=== PATIENT | male | born 1980 | race Caucasian/White ===

== ENCOUNTER 2018-08-18 01:29 | Emergency (ER) | payer SELFPAY ==
[2018-08-18 02:52] VITALS: BP 127/92; PULSE 72; TEMP 98.2; BMI 30.7
--- NOTE | 2018-08-18 03:26 | PDOC ---
Attending Attestation - Resident Resident Name: Duke Weiner - ED Attending Attestation I have performed the following: I have examined & evaluated the patient, The case was reviewed & discussed with the resident, I agree w/resident's findings & plan
[2018-08-18] MEDS ORDERED: OFLOXACIN 0.3% OTIC SOLUTION 5 ML BOTTLE AU ONE (03:42)
[2018-08-18] MEDS ORDERED: IBUPROFEN 400 MG TABLET (FP) PO ONE ×2 (03:45→03:53)
--- NOTE | 2018-08-18 03:54 | PDOC ---
History of Present Illness - General Chief Complaint: Ear Problem Stated Complaint: R EAR PAIN Time Seen by Provider: 08/18/18 03:02 History Source: Patient - History of Present Illness Initial Comments: 08/18/18 03:49 38 year old male with right ear pain x 3 days seen in clinic 1 day ago started on augmentin. patient reports persistent ear pain, took tylenol with no improvement in pain. 08/18/18 03:52 Past History - Past Medical History Allergies/Adverse Reactions: Allergies Allergy/AdvReac Type Severity Reaction Status Date / Time No Known Allergies Allergy Verified 08/18/18 02:52 Home Medications: Ambulatory Orders Ciprofloxacin HCl/Dexameth [Ciprodex Otic Suspension] 4 drop AU BID #1 bottle - Suicide/Smoking/Psychosocial Hx Smoking History: Never smoked Have you smoked in the past 12 months: No Information on smoking cessation initiated: No Hx Alcohol Use: Yes Drug/Substance Use Hx: No *Physical Exam - Vital Signs Last Vital Signs Temp Pulse Resp BP Pulse Ox 98.2 F 72 19 127/92 97 08/18/18 01:29 08/18/18 01:29 08/18/18 01:29 08/18/18 01:29 08/18/18 01:29 - Physical Exam General Appearance: Yes: Appropriately Dressed HEENT: positive: Other (otitis externa erythematous. pain to ear when tragus is pulled/ ) Neck: negative: Lymphadenopathy (R), Lymphadenopathy (L) Moderate Sedation - Procedure Monitoring Vital Signs: Procedure Monitoring Vital Signs Temperature 98.2 F 08/18/18 01:29 Pulse Rate 72 08/18/18 01:29 Respiratory Rate 19 08/18/18 01:29 Blood Pressure 127/92 08/18/18 01:29 O2 Sat by Pulse Oximetry (%) 97 08/18/18 01:29 *DC/Admit/Observation/Transfer Diagnosis at time of Disposition: Otitis externa Qualifiers: Otitis externa type: unspecified type Chronicity: acute Laterality: right Qualified Code(s): H60.501 - Unspecified acute noninfective otitis externa, right ear - Discharge Dispostion Disposition: HOME Condition at time of disposition: Fair - Prescriptions Prescriptions: Ciprofloxacin HCl/Dexameth [Ciprodex Otic Suspension] 4 drop AU BID #1 bottle - Referrals - Patient Instructions Printed Discharge Instructions: DI for Otitis Externa Additional Instructions: instill ear drops as perscribed. take augmentin as prescribed follow up with a ENT doctor in 1-2 days. Additional Instructions: * Please call your personal physician to report your Emergency Department visit and to report your progress, if any. * If there is no improvement in symptoms in 2 days call your physician. * Return to the Emergency Department for any worsening symptoms. - Post Discharge Activity Forms/Work/School Notes: Back to Work
--- NOTE | 2018-08-18 04:11 | PDOC ---
*Physical Exam - Vital Signs Last Vital Signs Temp Pulse Resp BP Pulse Ox 98.2 F 72 19 127/92 97 08/18/18 01:29 08/18/18 01:29 08/18/18 01:29 08/18/18 01:29 08/18/18 01:29 ED Treatment Course - Medications Given in the ED: ED Medications Discontinued Medications Generic Name Dose Route Start Last Admin Trade Name Josy PRN Reason Stop Dose Admin Ibuprofen 800 mg 08/18/18 03:45 08/18/18 03:55 Motrin - PO 08/18/18 03:46 800 mg ONCE ONE Administration Ofloxacin 10 drop 08/18/18 03:42 08/18/18 03:55 Floxin Otic (Ear) Solution - AU 08/18/18 03:43 Not Given ONCE ONE Medical Decision Making - Medical Decision Making 08/18/18 04:11 Patient seen by the advanced practice provider under my direct supervision. Ancillary testing reviewed as necessary. I agree with plan as outlined by the advanced practice provider. *DC/Admit/Observation/Transfer Diagnosis at time of Disposition: Otitis externa Qualifiers: Otitis externa type: unspecified type Chronicity: acute Laterality: right Qualified Code(s): H60.501 - Unspecified acute noninfective otitis externa, right ear - Discharge Dispostion Disposition: HOME Condition at time of disposition: Fair - Prescriptions Prescriptions: Ciprofloxacin HCl/Dexameth [Ciprodex Otic Suspension] 4 drop AU BID #1 bottle - Referrals - Patient Instructions Printed Discharge Instructions: DI for Otitis Externa Additional Instructions: instill ear drops as perscribed. take augmentin as prescribed follow up with a ENT doctor in 1-2 days. Additional Instructions: * Please call your personal physician to report your Emergency Department visit and to report your progress, if any. * If there is no improvement in symptoms in 2 days call your physician. * Return to the Emergency Department for any worsening symptoms. - Post Discharge Activity Forms/Work/School Notes: Back to Work
== END 2018-08-18 06:14 | disposition home or self-care (01) ==
LOC: JER 01:29
DX: H60.501 Unspecified acute noninfective otitis externa, right ear (principal)
CPT/HCPCS: 99281-25